=== PATIENT | male | born 1990 | race Caucasian/White ===

== ENCOUNTER 2018-05-09 15:59 | Emergency (ER) | payer MEDICAID ==
[~2018-05-09] VITALS: Ht 177.8 cm; Wt 77.7 kg
[2018-05-09 16:05] VITALS: BP 120/76; PULSE 90; RESP 18; Ht 177.8 cm; Wt 77.7 kg
--- NOTE | 2018-05-09 19:59 | ERD ---
ER Documentation Chief Complaint Chief Complaint FEVER WITH RASH ON LEFT UPPER THIGH & ABDOMEN X 2 WEEKS HPI 28-year-old male presents with a rash extremities and hands and feet for last 2- 3 weeks. He admits to high risk sexual activity in the month prior. Believes he may have syphilis. He did have a sore in his mouth which is improving. Denies any penile discharge. Denies other symptoms. ROS All systems reviewed and are negative except as per history of present illness. Allergies Allergies: Coded Allergies: No Known Allergy (Unverified , 05/09/18) PMhx/Soc Medical and Surgical Hx: pt denies Medical Hx, pt denies Surgical Hx History of Surgery: No Anesthesia Reaction: No Hx Neurological Disorder: No Hx Respiratory Disorders: No Hx Cardiac Disorders: No Hx Psychiatric Problems: No Hx Miscellaneous Medical Probl: No Hx Alcohol Use: No Hx Substance Use: No Hx Tobacco Use: Yes Smoking Status: Current every day smoker FmHx Family History: No diabetes, No coronary disease, No other Physical Exam Vitals Vital Signs Date Temp Pulse Resp B/P (MAP) Pulse Ox O2 O2 Flow FiO2 Time Delivery Rate 05/09/18 98.0 90 18 120/76 96 16:05 (91) Physical Exam Const: No acute distress Head: Atraumatic Eyes: Normal Conjunctiva ENT: Normal External Ears, Nose and Mouth. Neck: Full range of motion. No meningismus. Resp: Clear to auscultation bilaterally Cardio: Regular rate and rhythm, no murmurs Abd: Soft, non tender, non distended. Normal bowel sounds Skin: No petechiae or purpura. Blanching erythematous maculopapular rash on the trunk and extremities. Nonblanching bronze colored 3 mm macules on the palms and soles. Back: No midline or flank tenderness Ext: No cyanosis, or edema Neur: Awake and alert Psych: Normal Mood and Affect Result Diagram: 05/09/18 1709 05/09/18 170 Results 24 hrs Laboratory Tests Test 05/09/18 17:09 White Blood Count 8.7 10^3/ul Red Blood Count 4.36 10^6/ul Hemoglobin 13.5 g/dl Hematocrit 40.2 % Mean Corpuscular Volume 92.2 fl Mean Corpuscular Hemoglobin 31.0 pg Mean Corpuscular Hemoglobin Concent 33.6 g/dl Red Cell Distribution Width 12.2 % Platelet Count 279 10^3/UL Mean Platelet Volume 8.5 fl Immature Granulocytes % 0.200 % Neutrophils % 80.3 % Lymphocytes % 12.4 % Monocytes % 5.6 % Eosinophils % 1.0 % Basophils % 0.5 % Nucleated Red Blood Cells % 0.0 /100WBC Immature Granulocytes # 0.020 10^3/ul Neutrophils # 7.0 10^3/ul Lymphocytes # 1.1 10^3/ul Monocytes # 0.5 10^3/ul Eosinophils # 0.1 10^3/ul Basophils # 0.0 10^3/ul Nucleated Red Blood Cells # 0.0 10^3/ul Sodium Level 142 mmol/L Potassium Level 4.1 mmol/L Chloride Level 101 mmol/L Carbon Dioxide Level 30 mmol/L Anion Gap 11 Blood Urea Nitrogen 13 mg/dl Creatinine 0.84 mg/dl Est Glomerular Filtrat Rate mL/min > 60 mL/min Glucose Level 125 mg/dl Calcium Level 9.6 mg/dl Total Bilirubin 0.1 mg/dl Direct Bilirubin 0.00 mg/dl Indirect Bilirubin 0.1 mg/dl Aspartate Amino Transf (AST/SGOT) 111 IU/L Alanine Aminotransferase (ALT/SGPT) 40 IU/L Alkaline Phosphatase 91 IU/L Total Protein 8.9 g/dl Albumin 4.5 g/dl Globulin 4.40 g/dl Albumin/Globulin Ratio 1.02 Rapid Plasma Reagin REACTIVE RPR Titer Additional Testing 1:64 Current Medications Medications Dose Sig/Isis Start Time Status Last (Trade) Ordered Route PRN Stop Time Admin Dose Reason Admin Penicillin 2,400,000 ONCE ONCE 05/09/18 DC 05/09/18 G units IM 20:00 05/09/18 20:22 Benzathine 20:01 (Bicillin La) Procedures/MDM CBC shows minimal anemia. CMP is normal. RPR is reactive. Patient was given penicillin 2,400,000 units IM. Patient presents with signs and symptoms of secondary syphilis. Patient will be discharged home with recommendations for av oidance of sex for the next 2 weeks, notification of partners, follow-up testing at 6 months and 12 months. She does return to ER for new or worsening symptoms. The patient was stable with no new complaints during the ER course. Clinically, there is no current evidence to suggest meningitis, sepsis, acute abdomen, pneumonia, stroke, acute coronary syndrome, pulmonary embolism, aortic dissection or any other emergent condition appearing to require further evaluation or hospitalization. Patient counseled regarding my diagnostic impression and care plan. Prior to discharge all questions answered. Pt agrees with treatment plan and understands strict return precautions. Pt is instructed to follow up with primary care provider within 24-48 hours. Precautionary instructions provided including instructions to return to the ER if not improving or for any worsening or changing symptoms or concerns. Departure Diagnosis: Primary Impression: Syphilis Condition: Stable Patient Instructions: Syphilis Additional Instructions: Recommend repeat testing in 6 months and 12 months. Avoid sexual activity for 2 weeks. Recheck otherwise for new or worsening symptoms. ADITYA GARCIA MD May 09, 2018 19:59
[2018-05-09] MEDS ORDERED: PENICILLIN G BENZ 2.4 MIL UNIT SYG IM ONE (20:00)
== END 2018-05-09 20:42 | disposition home or self-care (01) ==
LOC: FTE 15:59
DX: A53.9 Syphilis, unspecified (principal); F17.210 Nicotine dependence, cigarettes, uncomplicated
CPT/HCPCS: 80053; 85025; 86592; 87285; 96372; J0561; Z7502